=== PATIENT | male | born 1935 | race Two or more races ===

== ENCOUNTER → 2017-04-13 | Outpatient (CLI) | payer OTHER ==
[2017-04-13 15:36] LABS: BASO % 0 % (0-3); EOS % 1 % (0-3); HEMATOCRIT 46.2 % (39.0-53.0); HEMOGLOBIN 15.9 g/dL (13.0-17.5); LYMPH # 1.7 x10^3/uL (1.0-4.8); LYMPH % 21 % (24-48); MEAN CORPUSCULAR HEMOGLOBIN 32 pg (25-35); MEAN CORPUSCULAR HGB CONC 34 g/dL (31-37); MEAN CORPUSCULAR VOLUME 93 fL (79-100); MONO % 6 % (0-9); NEUT % 71 % (31-73); PLATELET COUNT 137 x10^3/uL (140-400); RED BLOOD COUNT 4.98 x10^6/uL (4.30-5.70); RED CELL DISTRIBUTION WIDTH 13.9 % (11.5-14.5); WHITE BLOOD COUNT 8.2 x10^3/uL (4.0-11.0)
[2017-04-13 15:47] LABS: ALBUMIN 3.4 g/dL (3.4-5.0); CALCIUM 8.7 mg/dL (8.5-10.1); GFR 72.1; INR 1.1 (0.8-1.1); POTASSIUM 4.1 mmol/L (3.5-5.1); PROTHROMBIN TIME PATIENT 13.8 SEC (11.7-14.0)
--- NOTE | 2017-04-13 16:00 | EKG ---
[facility] [address] [place] [address] Test Date: 2017-04-13 Test Time: 15:28:09 Pat Name: MADELEINE ADAMES Department: Room: Gender: M Mental Health Program Specialist: ELIZABETH : 1935 Requested By: CLAUDETTE WALDRON Order Number: [id number] Reading MD: Nitesh Chou Measurements Intervals [place] Rate: 80 P: 152 IA: 196 QRS: 155 QRSD: 102 T: 162 QT: 352 QTc: 409 Interpretive Statements SINUS RHYTHM ABNORMAL RIGHT AXIS DEVIATION CONSIDER RIGHT VENTRICULAR HYPERTROPHY NONSPECIFIC ST-T WAVE CHANGES. ABNORMAL ECG RI6.01 No previous ECG available for comparison Electronically Signed On 04-13-2017 16:00:37 [employer] by Nitesh Chou
--- NOTE | 2017-04-13 16:45 | RAD ---
Chest radiograph 04/13/2017 2 views Clinical indication: Preoperative evaluation for total knee arthroplasty Comparison: None Findings: Cardiac and mediastinal silhouettes are within normal limits. No pleural effusion, pneumothorax or focal consolidation. There is multilevel thoracic spondylosis. Impression: No acute cardiopulmonary abnormality.
[2017-04-13 16:58] LABS: BILIRUBIN,URINE NEGATIVE (NEG); GLUCOSE,URINE NEGATIVE (NEG); NITRITE,URINE NEGATIVE (NEG); PH,URINE 5.5; PROTEIN,URINE NEGATIVE (NEG-TRACE); UROBILINOGEN,URINE 0.2 mg/dL (0.2 mg/dL)
[2017-04-13 17:07] LABS: BACTERIA,URINE 0 /HPF (0-FEW); RBC,URINE 0 /HPF (0-2); WBC,URINE RARE /HPF (0-4)
== END | disposition home or self-care (01) ==
LOC: MERGE 14:29 → EDSEX 14:29 → SURGPAT 14:29
PROVIDERS: ATTEND Orthopaedic Surgery Sports Medicine
DX: Z01.818 Encounter for other preprocedural examination (principal); M47.894 Other spondylosis, thoracic region; I51.7 Cardiomegaly; R94.31 Abnormal electrocardiogram [ECG] [EKG]
CPT/HCPCS: 36415; 71020; 80048; 81001; 82040; 83036; 85025; 85610; 85651; 85730; 87641; 93005

== ENCOUNTER 2017-04-25 05:52 | Inpatient (IN) | payer OTHER ==
[~2017-04-25] VITALS: Ht 172.7 cm; Wt 76.9 kg
[2017-04-25] VITALS (8 sets, daily range): BP systolic 119–149; BP diastolic 66–87
[~2017-04-25 05:52] MED LIST: CYCL10TA2 PO; DONE10TA7 PO; HYDR-2758 PO; LEVO100T5 PO; TAMS0.4C2 PO
[2017-04-25] MEDS ORDERED: MORPHINE SULFATE 5 MG, KETOROLAC 30 MG, ROPIVacaine 0.5% PF 60 ML, EPINEPHrine 0.5 MG i... INT ART ONE ×5 (06:00)
[2017-04-25] MEDS ORDERED: TRANEXAMIC ACID 1,000 MG in IV NS 50ML -- 1ST BAG INJ ONE (06:00)
[2017-04-25] MEDS ORDERED: MELOXICAM 7.5 MG TABLET PO PRN (06:00)
[2017-04-25] MEDS ORDERED: ACETAMINOPHEN 500 MG TABLET PO PRN (06:00)
[2017-04-25] MEDS ORDERED: LIDOCAINE 1% PF 2 ML VIAL. ID PRN (07:00)
[2017-04-25] MEDS ORDERED: HYDROmorphone 2 MG/ML VIAL IV PRN (07:00)
[2017-04-25] MEDS ORDERED: IV RINGERS,LACTATED 1000ML 1,000 ML IV SCH (07:00)
[2017-04-25] MEDS ORDERED: MORPHINE SULFATE 2 MG/ML DISP.SYRIN. IV PRN ×2 (07:00→07:15)
[2017-04-25] MEDS ORDERED: fentaNYL PF VIAL 100 MCG/2 ML VIAL IV PRN ×4 (07:00→07:15)
[2017-04-25] MEDS ORDERED: PROCHLORPERAZINE 10 MG/2 ML VIAL. IV PRN ×2 (07:00→07:15)
[2017-04-25] MEDS ORDERED: HYDROcodone/APAP 10/325 1 TAB TABLET PO PRN (07:15)
[2017-04-25] MEDS ORDERED: METOCLOPRAMIDE HCL 10 MG/2 ML VIAL. IV PRN (07:15)
[2017-04-25] MEDS ORDERED: 0.9 % SODIUM CHLORIDE 10 ML DISP.SYRIN. IV PRN (07:15)
[2017-04-25] MEDS ORDERED: CALCIUM CARBONATE 500 MG TAB.CHEW PO PRN (07:15)
[2017-04-25] MEDS ORDERED: ZOLPIDEM 5 MG TABLET. PO PRN (07:15)
[2017-04-25] MEDS ORDERED: diphenhydrAMINE 50 MG/ML VIAL IV PRN (07:15)
[2017-04-25] MEDS ORDERED: MORPHINE SULFATE 10 MG/ML VIAL. IV PRN (07:15)
[2017-04-25] MEDS ORDERED: PROCHLORPERAZINE 5 MG TABLET. PO PRN (07:15)
[2017-04-25] MEDS ORDERED: oxyCODONE/APAP 7.5/325 1 TAB TABLET PO PRN (07:15)
[2017-04-25] MEDS ORDERED: CYCLOBENZAPRINE 10 MG TABLET. PO PRN (07:15)
[2017-04-25] MEDS ORDERED: traMADol 50 MG TABLET PO PRN ×2 (07:15)
[2017-04-25] MEDS ORDERED: ACETAMINOPHEN 325 MG TABLET. PO PRN (07:15)
[2017-04-25] MEDS ORDERED: MORPHINE SULFATE 4 MG/ML DISP.SYRIN. IV PRN ×2 (07:15)
[2017-04-25] MEDS ORDERED: DEXTROSE 50% 25 GM / 50ML DISP.SYRIN. IV PRN (07:15)
--- NOTE | 2017-04-25 07:20 | PDOC4 ---
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 Components inserted: Alexander and nephew size 4 left journeyed to COBOL chrome femur Size 3 left journeyed tibial baseplate 23 mm biconvex patella 12 mm articular insert Findings: Advanced primary degenerative joint disease, tricompartmental Reason for procedure: The patient is a very pleasant 81-year-old gentleman who has tried and failed conservative therapy such as an exercise program, cortisone injections and assistive devices. These have not alleviated his severe progressive left knee pain that was interfering with his activities of daily living and therefore we had a discussion of the risks, benefits, and alternatives to surgery with the patient and family members. They wish to proceed. Description of procedure: Patient was greeted in the preoperative area by myself for the correct extremity was marked and verified. Taken back to the operative suite and his antibiotics were started and row. Once in the operating room he was transferred gently supine to the OR table and secured to the bed after successful induction of a general anesthetic. We then attached a padded bump at his hip to the bed and our footplate astudillo for our Villalobos leg positioning device. I then conducted an examination under anesthesia. His range of motion was just shy of full extension to 130. His knee was stable to varus and valgus in extension and 30 of flexion. We then proceeded to prep and drape left lower extremity in our usual sterile fashion including an [place]. We then conducted our standard preoperative timeout. I then palpated and marked her surface anatomy and lulú a line from my standard anterior midline skin incision. The extremity was then exsanguinated with an Esmarch and tourniquet was insufflated. I then made my standard anterior midline skin incision and dissected subcutaneous tissue to expose the extensor mechanism with electrocautery. I then made my standard medial parapatellar arthrotomy and then performed my medial release with a combination of Wells and electrocautery. After this, I bluntly dissected the fat pad off the patellar tendon and protected this with an [facility] retractor and excised the fat pad. I then flexed the knee and excised the cruciate ligaments. I then gained entry to the distal femur with the drill after marking [place] line and the epicondylar axis with electrocautery. I then inserted my guide humaira into the femur and then impacted my distal femoral cutting block into position and made my distal femoral cut after removing the guide humaira. After this I placed my distal femoral 5 in 1 cutting block taking care to ensure good rotation. This was then pinned into place with threaded pins and I made these cuts. I then delivered the bony pieces from the operative field after removing the cutting block. I then directed my attention to the proximal tibia and used the extramedullary medullary tibial cutting guide and pinned in place and made my proximal tibial cut. After this I delivered this bony pieces from the operative field with circumferential electrocautery. The leg was then brought out into extension and a spacer block and drop humaira were used to check alignment and stability which I was happy with. I then reflexed the knee and placed my retractors again and then trialed different tibial baseplate's and selected the above size and pinned into place followed by drilling and punching for the fins. I then impacted my femoral trial component into position and reamed and punched for the cam. I then placed the trial cam piece followed by a trial polyethylene. He had range of motion from 0-140 in the knee that was stable to varus and valgus in extension and mid flexion. I then directed my attention to the patella and sized for the above size inset patella and reamed for this. With all trial components in place he had excellent patellar tracking. I then removed all trial components and thoroughly irrigated all bony surfaces and then proceeded to cement in place my tibial component followed by my femoral component. The knee was then reduced with a trial polyethylene insert in place and the cement was allowed to polymerize with the leg in extension. While this was occurring, I clamped and secured my patellar button in place and I injected my periarticular mixture. I took care to remove all loose cement. After the cement had fully polymerized, into the knee through range of motion and tested stability and was happy with the 12 mm, I had trialed an 11 as well but he had a little too much hyperextension. After this, we removed the trial polyethylene and I thoroughly irrigated out the knee. The tourniquet was let down and bleeders were cauterized. He had a fair amount of oozing from the bone ends and therefore I placed a 1/8 inch Hemovac exiting superolaterally from his knee. I then placed my polyethylene insert and secured and clamped in place, visualizing that it had fully seated. We then closed the arthrotomy with simple interrupted #1 Vicryl with the exception of a [id number] proximally. I tested the arthrotomy closure in flexion and noted no extravasation of blood. Inverted interrupted 2 was used for subcutaneous tissue and running 4-0 Monocryl in a subcuticular fashion was used for skin. To accomplishing wound closure all culture reports correct 2. No competitions. He tolerated surgery well. At the conclusion of surgery the Alexander & Nephew kali was applied followed by Slim wrap. He is awake from anesthesia he tolerated surgery well. At the conclusion of the surgery he was transferred gently supine to the hospital bed and taken to PACU in stable and extubated condition. Postoperative plan is to admit him to the joint center for DVT and antibiotic prophylaxis. He received rehabilitation as well as IV pain medicine as well. ABHIJIT WALDRON II, MD Apr 25, 2017 07:20
[2017-04-25] MEDS ORDERED: fentaNYL PF VIAL 250 MCG/5 ML VIAL ONE (07:22)
[2017-04-25] MEDS ORDERED: MIDAZOLAM HCL/PF 2 MG/2 ML VIAL. ONE (07:24)
[2017-04-25] MEDS ORDERED: ceFAZolin SODIUM 1 GM in IV DEXTROSE 5% 50 ML IV SCH (07:30)
[2017-04-25 07:31] LABS: INR 1.1 (0.8-1.1); PROTHROMBIN TIME PATIENT 13.2 SEC (11.7-14.0)
[2017-04-25] MEDS ORDERED: TRANEXAMIC ACID 1,000 MG in IV NS 50ML -- 2ND BAG INJ ONE (08:00)
[2017-04-25] MEDS ORDERED: LABETALOL 20 MG/4 ML DISP.SYRIN. ONE (08:07)
[2017-04-25] MEDS ORDERED: DEXAMETHASONE SOD PHOS 20 MG/5 ML VIAL. ONE (08:07)
[2017-04-25] MEDS ORDERED: PROPOFOL 20 ML IV ONE (08:07)
[2017-04-25] MEDS ORDERED: SEVOFLURANE > 120 MINUTES. IH ONE (08:07)
[2017-04-25] MEDS ORDERED: ONDANSETRON PF 4 MG/2 ML VIAL. ONE (08:07)
[2017-04-25] MEDS ORDERED: LIDOCAINE 2% PF Vial for OR 5 ML VIAL. ONE (08:07)
[2017-04-25] MEDS ORDERED: PROCHLORPERAZINE 10 MG/2 ML VIAL. ONE (09:53)
--- NOTE | 2017-04-25 11:09 | RAD ---
KNEE LEFT 2V Clinical Indication: POST OP, left knee replacement Comparison: None. Findings: Postsurgical changes of left total knee arthroplasty. Near-anatomic alignment. No evidence of immediate hardware failure. Expected postsurgical changes of subcutaneous air and surgical drain. No acute fracture or malalignment. Vascular calcifications. IMPRESSION: Postsurgical changes of left total knee arthroplasty without evidence of immediate hardware failure. Near-anatomic alignment.
[2017-04-25] MEDS: IV DEXTROSE 5 %-0.45 % NACL 1,000 ML IV SCH ×2 (14:17→22:00)
[2017-04-25] MEDS: ceFAZolin SODIUM IV Push 1 GM VIAL. IVP SCH ×2 (14:18→21:18)
[2017-04-25] MEDS ORDERED: WARFARIN 7.5 MG TABLET. PO ONE (16:00)
[2017-04-25] MEDS: FERROUS SULFATE 325 MG TABLET. PO SCH (17:00)
[2017-04-25] MEDS ORDERED: KETOROLAC 30 MG, BUPIVACAINE MPF 0.25% 20 ML, EPINEPHrine 0.5 MG in TOTAL VOLUME SYRING... INT ART SCH (18:00)
[2017-04-25] MEDS: CELECOXIB 200 MG CAPSULE. PO SCH (21:17)
[2017-04-26] MEDS: ceFAZolin SODIUM IV Push 1 GM VIAL. IVP SCH (02:46)
[2017-04-26 03:00] VITALS: BP 97/58
[2017-04-26 03:52] LABS: HEMATOCRIT 37.2 % (39.0-53.0); HEMOGLOBIN 12.5 g/dL (13.0-17.5)
[2017-04-26 04:03] LABS: INR 1.6 (0.8-1.1); PROTHROMBIN TIME PATIENT 17.7 SEC (11.7-14.0)
[2017-04-26] MEDS ORDERED: MAGNESIUM HYDROXIDE 2,400 MG/30 ML ORAL.SUSP. PO PRN (06:00)
[2017-04-26] MEDS: LEVOTHYROXINE 100 MCG TABLET PO SCH (06:13)
[2017-04-26 06:31] VITALS: BP 112/64
--- NOTE | 2017-04-26 08:01 | PDOC ---
ORTHO PROGRESS NOTES Subjective Very little pain. Tolerating diet Vitals Vital Signs Date Time Temp Pulse Resp B/P (MAP) Pulse Ox O2 Delivery O2 Flow Rate FiO2 04/26/17 06:31 98.7 79 16 112/64 (80) 95 Room Air 98.7 04/25/17 09:55 10 Labs Laboratory Tests Test 04/25/17 06:35 04/26/17 03:31 Prothrombin Time 13.2 SEC (11.7-14.0) 17.7 SEC (11.7-14.0) Prothromb Time International Ratio 1.1 (0.8-1.1) 1.6 (0.8-1.1) Activated Partial Thromboplast Time 31 SEC (24-38) Hemoglobin 12.5 g/dL (13.0-17.5) Hematocrit 37.2 % (39.0-53.0) Mean Corpuscular Hemoglobin Concent 34 g/dL (31-37) Laboratory Tests Test 04/26/17 03:31 Hemoglobin 12.5 g/dL (13.0-17.5) Hematocrit 37.2 % (39.0-53.0) Mean Corpuscular Hemoglobin Concent 34 g/dL (31-37) Prothrombin Time 17.7 SEC (11.7-14.0) Prothromb Time International Ratio 1.6 (0.8-1.1) Notes output reviewed A and A sitting at edge of bed LLE: dressing intact normal m and s toes warm Assessment and Plan PT/OT follow mima Ruiz NICHOLAS S II MD Apr 26, 2017 08:01
[2017-04-26] MEDS: CELECOXIB 200 MG CAPSULE. PO SCH ×2 (08:55→21:20)
[2017-04-26] MEDS: TAMSULOSIN 0.4 MG CAP.ER.24H. PO SCH (08:55)
[2017-04-26] MEDS: FERROUS SULFATE 325 MG TABLET. PO SCH ×2 (08:55→17:26)
[2017-04-26] MEDS: DONEPEZIL HCL 10 MG TABLET. PO SCH (08:55)
[2017-04-26] MEDS: SENNOSIDES/DOCUSATE 8.6/50MG TABLET. PO SCH (08:55)
[2017-04-26] MEDS: MULTIVITAMIN with MINERAL TABLET. PO SCH (08:55)
[2017-04-26] MEDS: oxyCODONE/APAP 5/325 1 TAB TABLET PO PRN ×3 (08:57→17:29)
[2017-04-26] MEDS ORDERED: BISACODYL 10 MG SUPP.RECT. PR PRN (16:00)
[2017-04-26] MEDS ORDERED: WARFARIN 1 MG TABLET. PO ONE (16:00)
[2017-04-26 17:29] VITALS: BP 113/65
[2017-04-27 06:15] VITALS: BP 106/60
[2017-04-27] MEDS: LEVOTHYROXINE 100 MCG TABLET PO SCH (06:17)
[2017-04-27 06:40] LABS: HEMATOCRIT 35.7 % (39.0-53.0); HEMOGLOBIN 12.3 g/dL (13.0-17.5)
[2017-04-27 06:50] LABS: INR 2.5 (0.8-1.1); PROTHROMBIN TIME PATIENT 25.3 SEC (11.7-14.0)
--- NOTE | 2017-04-27 09:03 | DISCH ---
DISCHARGE WITH HOME HEALTH DISCHARGE INFORMATION: Discharge Date: Apr 28, 2017 Final Diagnosis: Advanced Left knee primary DJD Condition on Discharge: Stable HOME HEALTH: Face to Face: I certify this patient is under my care and that I, or a nurse practitioner or physician's podiatry assistant working with me, had a face to face encounter that meets the physician face to face encounter requirements with this patient on []. Medical Condition(s): S/P Joint Replacement Nursing Home For: Other: (blood draws) Physical Therapy For: Evalulation/Treatment Occupational Therapy For: Evaluation/Treatment Patient meets Homebound Statu: Limited distance walking FOLLOW-UP: Follow up with: Matteo in 2 wks Follow Up With: Pharmacy for coumadin management CERTIFICATION STATEMENT: Certification Statement: Certification Statement: Based on the above finding, I certify that this patient is confined to the home and needs intermittent retirement care, physical therapy and/or speech therapy, or continues to need occupational therapy.~ This patient is under my care, and I have initiated the establishment of the plan of care.~ This patient will be followed by myself or a community physician who will periodically review the plan of care. CLAUDETTE WALDRON II, MD Apr 27, 2017 09:03
[2017-04-27] MEDS: MULTIVITAMIN with MINERAL TABLET. PO SCH (09:08)
[2017-04-27] MEDS: FERROUS SULFATE 325 MG TABLET. PO SCH ×2 (09:08→16:22)
[2017-04-27] MEDS: CELECOXIB 200 MG CAPSULE. PO SCH ×2 (09:08→20:59)
[2017-04-27] MEDS: SENNOSIDES/DOCUSATE 8.6/50MG TABLET. PO SCH (09:08)
[2017-04-27] MEDS: DONEPEZIL HCL 10 MG TABLET. PO SCH (09:08)
[2017-04-27] MEDS: TAMSULOSIN 0.4 MG CAP.ER.24H. PO SCH (09:08)
--- NOTE | 2017-04-27 09:10 | PDOC ---
ORTHO PROGRESS NOTES Subjective More pain today, at night and after PT. No complaints otherwise Vitals Vital Signs Date Time Temp Pulse Resp B/P (MAP) Pulse Ox O2 Delivery O2 Flow Rate FiO2 04/27/17 06:15 98.6 94 18 106/60 (75) 94 Room Air 98.6 Labs Laboratory Tests Test 04/26/17 03:31 04/27/17 06:00 Hemoglobin 12.5 g/dL (13.0-17.5) 12.3 g/dL (13.0-17.5) Hematocrit 37.2 % (39.0-53.0) 35.7 % (39.0-53.0) Mean Corpuscular Hemoglobin Concent 34 g/dL (31-37) 34 g/dL (31-37) Prothrombin Time 17.7 SEC (11.7-14.0) 25.3 SEC (11.7-14.0) Prothromb Time International Ratio 1.6 (0.8-1.1) 2.5 (0.8-1.1) Laboratory Tests Test 04/27/17 06:00 Hemoglobin 12.3 g/dL (13.0-17.5) Hematocrit 35.7 % (39.0-53.0) Mean Corpuscular Hemoglobin Concent 34 g/dL (31-37) Prothrombin Time 25.3 SEC (11.7-14.0) Prothromb Time International Ratio 2.5 (0.8-1.1) Notes A and A sitting in chair LLE: dressing intact remains NVI Assessment and Plan home with [facility] tomorrow, I think he would benefit from some additional help at home cont PT CLAUDETTE WALDRON II, MD Apr 27, 2017 09:10
[2017-04-27] MEDS: HYDROcodone/APAP 7.5/325MG 1 TAB TABLET PO PRN ×2 (09:11→19:24)
[2017-04-27 18:10] VITALS: BP 145/77
[2017-04-28 04:55] LABS: HEMATOCRIT 33.8 % (39.0-53.0); HEMOGLOBIN 11.8 g/dL (13.0-17.5)
[2017-04-28 05:05] LABS: INR 2.1 (0.8-1.1); PROTHROMBIN TIME PATIENT 21.9 SEC (11.7-14.0)
[2017-04-28 06:00] VITALS: BP 92/58
[2017-04-28] MEDS: LEVOTHYROXINE 100 MCG TABLET PO SCH (06:47)
--- NOTE | 2017-04-28 08:05 | PDOC ---
ORTHO PROGRESS NOTES Subjective Pain ok, has been up and moving a little more Vitals Vital Signs Date Time Temp Pulse Resp B/P (MAP) Pulse Ox O2 Delivery O2 Flow Rate FiO2 04/28/17 06:00 98.0 81 16 92/58 (69) 98 Room Air 98.0 Labs Laboratory Tests Test 04/27/17 06:00 04/28/17 04:21 Hemoglobin 12.3 g/dL (13.0-17.5) 11.8 g/dL (13.0-17.5) Hematocrit 35.7 % (39.0-53.0) 33.8 % (39.0-53.0) Mean Corpuscular Hemoglobin Concent 34 g/dL (31-37) 35 g/dL (31-37) Prothrombin Time 25.3 SEC (11.7-14.0) 21.9 SEC (11.7-14.0) Prothromb Time International Ratio 2.5 (0.8-1.1) 2.1 (0.8-1.1) Laboratory Tests Test 04/28/17 04:21 Hemoglobin 11.8 g/dL (13.0-17.5) Hematocrit 33.8 % (39.0-53.0) Mean Corpuscular Hemoglobin Concent 35 g/dL (31-37) Prothrombin Time 21.9 SEC (11.7-14.0) Prothromb Time International Ratio 2.1 (0.8-1.1) Notes A and A walking in room LLE: dressing intact remains NVI Assessment and Plan home with [facility] discussed care with family CLAUDETTE WALDRON II, MD Apr 28, 2017 08:05
[2017-04-28] MEDS: MULTIVITAMIN with MINERAL TABLET. PO SCH (08:11)
[2017-04-28] MEDS: DONEPEZIL HCL 10 MG TABLET. PO SCH (08:11)
[2017-04-28] MEDS: FERROUS SULFATE 325 MG TABLET. PO SCH (08:11)
[2017-04-28] MEDS: TAMSULOSIN 0.4 MG CAP.ER.24H. PO SCH (08:11)
[2017-04-28] MEDS: CELECOXIB 200 MG CAPSULE. PO SCH (08:11)
[2017-04-28] MEDS: SENNOSIDES/DOCUSATE 8.6/50MG TABLET. PO SCH (08:11)
[2017-04-28] MEDS: HYDROcodone/APAP 7.5/325MG 1 TAB TABLET PO PRN ×2 (08:15→13:09)
--- NOTE | 2017-04-28 09:48 | PATHOLOGY ---
PATHOLOGY REPORT * * * * * * * * FINAL DIAGNOSIS: Segments of bone and soft tissue, left total knee arthroplasty: - Advanced degenerative arthritis. (JPM:brice; 04/27/2017) REPORT ELECTRONICALLY SIGNED BY: Louis Maritn M.D. DATE/TIME: 04/28/2017 09:46 * * * * * * * * GROSS PATHOLOGY: Received in formalin labeled "Madeleine Harkins, left knee bone and tissue," are multiple segments of bone, including tibial plateau, measuring 11.3 x 8.4 x 2.6 cm in aggregate dimensions with scant soft tissue; meniscus is not present. The specimen shows focal eburnation of the articular surfaces. [employer] sections of bone and soft tissue are submitted in cassette A1, following decalcification. ([facility]; 04/26/2017) INITIAL CPT CODE(S): A; 79899, 86599 Professional services [place] [address] Technical services performed by [facility] at [address] [place] [address], [facility] [address] [address]. SPECIMEN(S) RECEIVED: A.Left knee total arthroplasty CLINICAL HISTORY: Left knee degenerative joint disease PATIENT: MADELEINE HARKINS /AGE: 2 1935 (Age: 81) PATIENT #: [id number] ALT CASE #: SPECIMEN COLLECTION DATE: 04/25/2017 SPECIMEN RECEIVED DATE: 04/25/2017 [facility] - [address] [place] [address] - PHONE: [phone] * * * END OF REPORT * * *
[2017-04-28] MEDS ORDERED: HYDR-2762 PO (12:39)
[2017-04-28] MEDS ORDERED: TRAM50TA PO (12:40)
[2017-04-28] MEDS ORDERED: WARF3TAB7 PO (12:41)
--- NOTE | 2017-04-28 12:54 | PDOC3 ---
Discharge Summary Visit Information Date of Admission: Apr 25, 2017 Date of Discharge: Apr 28, 2017 Admitting Diagnosis: Advanced Left primary DJD knee Brief Hospital Course Allergies Allergies Coded Allergies Type Severity Reaction Last Updated Verified No Known Drug Allergies 04/25/17 No Vital Signs Vital Signs Date Time Temp Pulse Resp B/P (MAP) Pulse Ox O2 Delivery O2 Flow Rate FiO2 04/28/17 09:27 Room Air 04/28/17 06:00 98.0 81 16 92/58 (69) 98 98.0 Lab Results Laboratory Tests Test 04/27/17 06:00 04/28/17 04:21 Hemoglobin 12.3 g/dL (13.0-17.5) 11.8 g/dL (13.0-17.5) Hematocrit 35.7 % (39.0-53.0) 33.8 % (39.0-53.0) Mean Corpuscular Hemoglobin Concent 34 g/dL (31-37) 35 g/dL (31-37) Prothrombin Time 25.3 SEC (11.7-14.0) 21.9 SEC (11.7-14.0) Prothromb Time International Ratio 2.5 (0.8-1.1) 2.1 (0.8-1.1) Laboratory Tests Test 04/28/17 04:21 Hemoglobin 11.8 g/dL (13.0-17.5) Hematocrit 33.8 % (39.0-53.0) Mean Corpuscular Hemoglobin Concent 35 g/dL (31-37) Prothrombin Time 21.9 SEC (11.7-14.0) Prothromb Time International Ratio 2.1 (0.8-1.1) Brief Hospital Course Mr. Harkins is a 81 old male who presented to my outpatient orthopedic surgery clinic with complaints of severe and progressive pain that failed conservative therapies including injections. We had a discussion of the risks, benefits, alternatives to total knee arthroplasty and he elected to proceed. He tolerated surgery well cover well from anesthesia in the PACU. He was then taken to the joint Center for care and observation. He did receive PT, OT, DVT and antibiotic prophylaxis. He recovered well from surgery and remained hemodynamically stable and afebrile throughout the hospitalization. Pain was controlled on oral pain medicine at the time of discharge. Good progress was made with therapy throughout the hospitalization, and activities of daily living were accomplished by the patient. The incision was clean dry and intact and the operative extremity had normal motor and sensation. Discharge Information Condition at Discharge: Stable Follow Up: Weeks Disposition/Orders: D/C to Home w/ HH Scheduled Donepezil Hcl (Donepezil Hcl), 1 TAB PO DAILY, (Reported) Levothyroxine Sodium (Levothyroxine Sodium), 1 TAB PO DAILY, (Reported) Tamsulosin Hcl (Tamsulosin Hcl), 1 CAP PO DAILY, (Reported) Warfarin Sodium (Warfarin Sodium), 1 TAB PO DAILY, (Reported) Scheduled PRN Cyclobenzaprine Hcl (Cyclobenzaprine Hcl), 1 TAB PO PRN TID PRN for MUSCLE SPASMS, (Reported) Hydrocodone Bit/Acetaminophen (Hydrocodone-Apap 5-325 ), 1 TAB PO PRN Q6HRS PRN for PAIN, (Reported) Hydrocodone Bit/Acetaminophen (Hydrocodone-Apap 7.5-325 ), 1 TAB PO PRN Q3HRS PRN for PAIN, (Reported) Tramadol Hcl (Tramadol Hcl), 1 TAB PO PRN Q6HRS PRN for PAIN, (Reported) Patient Instructions Patient Instructions He will be discharged home. Home health care has been set up. We will get him started on outpatient therapy as soon as we are able. The patient will be on Coumadin for a month. He can weight-bear as tolerated. Worrisome signs and symptoms that should prompt a phone call to my office were discussed. We'll see him back in 2 weeks, sooner should a problem arise. CLAUDETTE WALDRON II, MD Apr 28, 2017 12:54
[2017-04-28] MEDS ORDERED: WARFARIN 3 MG TABLET. PO ONE (13:00)
[2017-04-28] MEDS ORDERED: WARFARIN 4 MG TABLET. PO ONE (13:00)
== END 2017-04-28 15:05 | disposition home health service (06) | DRG 470 ==
LOC: EDSEX → OPSVCIP 05:52 → MERGE 07:30 → EDUNIT# 07:30 → EDSTATUS 07:30 → 4 SOUTHEST 11:50
PROVIDERS: ADMIT Orthopaedic Surgery Sports Medicine; ATTEND Orthopaedic Surgery Sports Medicine
PROC: 0SRD0J9 Replacement of Left Knee Joint with Synthetic Substitute, Cemented, Open Approach (ICD-10-PCS; principal; 2017-04-25 07:30)
DX: M17.12 Unilateral primary osteoarthritis, left knee (principal)
CPT/HCPCS: 36415; 73560; 85014; 85018; 85610; 85730; 86850; 86900; 86901; 88305; 88311; C1713; J0171; J0690; J0780; J1100; J1885; J2250; J2270; J2405; J2704; J2795; J3010; J3490; J7030; J7120; 97110; 97116; 97150; 97530; 97535; C1769; J2001